=== PATIENT | female | born 1990 | race Caucasian/White ===

== ENCOUNTER → 2022-03-10 14:12 | Outpatient (BNVA) | payer OTHER, SELFPAY | PROVIDERS: Visit Provider Physician Assistant | DX: M47.894 Other spondylosis, thoracic region (principal); M41.84 Other forms of scoliosis, thoracic region; M54.2 Cervicalgia; M54.6 Pain in thoracic spine | CPT/HCPCS: 72040; 72072; 72110 ==

== ENCOUNTER 2022-03-14 11:17 | Emergency (ER) | payer OTHER, SELFPAY ==
[2022-03-14] VITALS (8 sets, daily range): BP systolic 96–165; BP diastolic 68–104; PULSE 71–101; RESP 16–29; TEMP 37.3; O2SAT 96–100
--- NOTE | 2022-03-14 11:42 | ED_ITS ---
HPI - General Adult General: Chief complaint: General Medical Stated complaint: back pain Time Seen by Provider: 03/14/22 11:27 History of Present Illness: Patient is a 31-year-old female without any significant past medical history presents emergency room with complaints of body aches, generalized paresthesia, fatigue since . Patient tells me the last week, her significant other was sick at home with weakness and cough. He also had symptoms last week. However since at 6:30 PM, patient suddenly developed diffuse body ache with paresthesia. Patient reported cough and generalized weakness on . Since then, patient has not improved. Patient also reports symptoms of dysuria. Patient denies any flank pain, nausea/vomiting, fever/chills. No other sick contacts at home. Patient denies any chest pain, shortness breath, abdominal pain, diarrhea/melena/hematochezia Onset:3 days ago Duration:3 days Location:home Severity:moderate Associated symptoms: Reports malaise; Deny chest pain, dyspnea, nausea, rash, palpitations or vomiting Review of Systems Const: Reports: body aches, malaise and other (+generalized paresthesia); Denies: fever(s) or chills Eyes: Denies: change in vision ENMT: Denies: mouth pain Card: Denies: chest pain or palpitations Resp: Denies: dyspnea or non-productive cough GI: Denies: abdominal pain, nausea, vomiting or diarrhea : Reports: dysuria (+dysuria x 2 days) Musc: Denies: extremity pain Skin/Breast: Denies: rash or new lesions Neuro: Denies: weakness in extremities Psych: Reports: other (Normal mood) Ezio/Lymph: Denies: easy bruising PFSH ED PFSH: Medical History No pertinent past medical history Social History Smoking and tobacco status: never smoked Alcohol intake: never Substance/Drug Use: never Physical Exam Const: COMMON NORMALS: alert HENMT: COMMON NORMALS: atraumatic HEAD & SCALP: atraumatic MOUTH: moist mucous membranes not abnormal Eye: COMMON NORMALS: EOMs intact bilaterally and conjunctivae normal CONJUNCTIVA: Yes conjunctivae normal Neck/C-Spine: COMMON NORMALS: full ROM and supple Resp: COMMON NORMALS: normal respiratory effort and clear to auscultation bilaterally AUSCULTATION: clear to auscultation bilaterally Cardio: COMMON NORMALS: regular rate RATE: regular rate GI: COMMON NORMALS: Soft to palpation and non-tender PALPATION: Yes Soft to palpation OTHER: No focal TTP. NO guarding rebound, guarding, rigidity. No CVA tenderness to percussion. Neg Boateng/Neg McBurney's point tenderness, no suprabupic tenderness to palpation. Extremity: COMMON NORMALS: full ROM Neuro: SENSORIUM/ORIENTATION: Yes alert MOTOR EXAM: No Abnormal motor strength present and Other motor observations present (no focal motor deficits) Psych: COMMON NORMALS: speech normal SPEECH: Yes normal speech MOOD & AFFECT: Yes euthymic mood Course Vital Signs: Vital signs: Vital Signs Temperature 99.2 F 03/14/22 11:31 Pulse Rate 72 03/14/22 17:00 Respiratory Rate 18 03/14/22 17:00 Blood Pressure 103/79 03/14/22 17:00 Pulse Oximetry 98 03/14/22 17:00 Oxygen Delivery Me thod 03/14/22 17:00 MDM - General Adult Medical Decision Making 31-year-old female presenting to the emergency room with body aches, generalized paresthesia for the last 3 days. On exam, patient is hemodynamically stable, neurologically intact. Patient complains of diffuse paresthesia throughout her body. Patient did have white count 2.5. Patient not neutropenic today. Patient is afebrile. Do not suspect any acute infection. Patient appears to be clear. COVID positive. He has no signs of respiratory distress, low oxygen sats or any signs of oral airway compromise. UA is negative for any signs of UTI. She has RBCs on urine. Patient is currently on her period. We will schedu le patient for MCA treatment. While in the emergency room, shortly after getting morphine, patient complains complains of diffuse abdominal pain. Decision was made to order a CT scan CT abdomen was negative for any acute findings. Patient received 1 mg Dilaudid reported improvement in pain. While observed in the emergency room, patient had intermittent nausea/vomiting. Patient's symptoms improved with multiple doses of zofran. Patient has been able to tolerate p.o. and liquid. Rx: Tylenol and gabapentin PRN parethesia and generalized weakness, menthol/aloe vera PRN pain/paresthesia, paxlovid for covid, zofran PRN nausea/vomiting Disposition: Discharge. Patient counseled regarding diagnostic impression, treatment plan. Patient given ED strict return precautions to return for continu ation, worsening, or development of new symptoms. Instructed to f/u w/ PCP regarding symptoms today. Patient verbalized understanding. Lab Data : 03/14/22 12:08 03/14/22 12:08 Radiology Impressions Chest X-Ray 03/14/22 11:49 IMPRESSION: No acute cardiopulmonary abnormality identified. Abdomen/Pelvis CT 03/14/22 14:26 IMPRESSION: Mild splenomegaly. No acute abdominopelvic findings otherwise. Somewhat limited exam due to lack of contrast. Laboratory Results WBC 2.5 10^3/uL (4.0-10.0) L 03/14/22 12:08 RBC 4.83 10^6/uL (4.1-5.3) 03/14/22 12:08 Hgb 13.8 g/dL (11.5-15.3) 03/14/22 12:08 Hct 42.4 % (37.0-47.0) 03/14/22 12:08 MCV 87.8 fl (81-99) 03/14/22 12:08 MCH 28.6 pg (28.0-34.0) 03/14/22 12:08 MCHC 32.5 g/dL (30.0-36.0) 03/14/22 12:08 RDW 12.5 % (12.1-15.1) 03/14/22 12:08 Plt Count 115 10^3/cmm (130-400) L 03/14/22 12:08 MPV 10.8 fL (7.4-10.4) H 03/14/22 12:08 Neut % (Auto) 65.0 % 03/14/22 12:08 Lymph % (Auto) 18.9 % 03/14/22 12:08 [place] % (Auto) 14.5 % 03/14/22 12:08 Eos % (Auto) 0.4 % 03/14/22 12:08 Baso % (Auto) 0.8 % 03/14/22 12:08 Neut # (Auto) 1.62 10^3/uL (1.8-7.7) L 03/14/22 12:08 Lymph # (Auto) 0.5 10^3/uL (0.8-4.8) L 03/14/22 12:08 [place] # (Auto) 0.4 10^3/uL (0.2-0.9) 03/14/22 12:08 Eos # (Auto) 0.0 10^3/uL (0.0-0.8) 03/14/22 12:08 Baso # (Auto) 0.0 10^3/uL (0.0-0.1) 03/14/22 12:08 Nucleated RBC % (auto) 0 % 03/14/22 12:08 Nucleated RBCs # 0.0 /100WBC 03/14/22 12:08 Sodium 140 mmol/L (136-145) 03/14/22 12:08 Potassium 3.7 mmol/L (3.5-5.1) 03/14/22 12:08 Chloride 107 mmol/L (98-107) 03/14/22 12:08 Carbon Dioxide 19 mmol/L (22-29) L 03/14/22 12:08 Anion Gap 17.7 (5-19) 03/14/22 12:08 BUN 8 mg/dL (6-20) 03/14/22 12:08 Creatinine 0.7 mg/dL (0.5-0.9) 03/14/22 12:08 GFR Calculation 97.6 mL/min (90-130) 03/14/22 12:08 Glucose 88 mg/dL (65-115) 03/14/22 12:08 Calculated Osmolality 288 mOsm/kg (285-295) 03/14/22 12:08 Calcium 9.0 mg/dL (8.5-10.5) 03/14/22 12:08 Total Bilirubin 0.3 mg/dL (0.15-1.2) 03/14/22 12:08 AST 29 U/L (0-32) 03/14/22 12:08 ALT 27 U/L (0-33) 03/14/22 12:08 Alkaline Phosphatase 56 IU/L (35-105) 03/14/22 12:08 Total Protein 6.4 g/dL (6.6-8.7) L 03/14/22 12:08 Albumin 4.0 g/dL (3.5-5.2) 03/14/22 12:08 Globulin 2.4 g/dL (1.3-4.6) 03/14/22 12:08 Lipase 42 U/L (13-60) 03/14/22 12:08 HCG, Qual Negative (Negative) 03/14/22 12:08 Urine Color Yellow (Yellow) 03/14/22 13:44 Urine Appearance Hazy (CLEAR) A 03/14/22 13:44 Urine pH 5 (5-7) 03/14/22 13:44 Ur Specific Eastern 1.020 (1.005-1.030) 03/14/22 13:44 Urine Protein Neg (Negative) 03/14/22 13:44 Urine Glucose (UA) Norm (Normal) 03/14/22 13:44 Urine Ketones 1+ (Negative) H 03/14/22 13:44 Urine Blood 3+ (Negative) H 03/14/22 13:44 Urine Nitrate Negative (Negative) 03/14/22 13:44 Urine Bilirubin Neg (Negative) 03/14/22 13:44 Urine Urobilinogen Norm mg/dL (Negative) 03/14/22 13:44 Ur Leukocyte Esterase Negative (Negative) 03/14/22 13:44 Urine RBC 50-80 /hpf (0-2) H 03/14/22 13:44 Urine WBC 0-4 /hpf (0-5) H 03/14/22 13:44 Ur Squamous Epith Cells 15-25 /hpf (0-5) H 03/14/22 13:44 Amorphous Sediment Not Reportable 03/14/22 13:44 Urine Bacteria Trace /hpf (NONE) 03/14/22 13:44 Urine Mucus 2+ /hpf 03/14/22 13:44 Coronavirus 229E (PCR) Not detected (NOT DETECT) 03/14/22 12:08 SARS-CoV-2 (PCR) Detected (NOT DETECT) A 03/14/22 12:08 Imaging Data Other Imaging: Radiologist's impression: [facility] [address] [place] [address] XRay Report Signed Patient: Rose Hansen Unit #: [id number] : 1990 Age/Sex: 31 / F ADM Date: 03/14/22 Loc: ER Room/Bed: Attending Dr: Ordering Provider/Ordering MD: Queenie Almanzar MD Date of Service: 03/14/22 Procedure(s): XR chest 1V portable [id number] Accession Number(s): [id number] Report Number: [id number] PROCEDURE INFORMATION: Exam: XR Chest Exam date and time: 03/14/2022 12:00 PM Age: 31 years old Clinical indication: Generalized weakness TECHNIQUE: Imaging protocol: Radiologic exam of the chest. Views: 1 view. COMPARISON: CR XR cervical spine fl/ex [id number] 03/10/2022 3:20 PM FINDINGS: Lungs: No pulmonary consolidation. Pleural spaces: No pleural effusion. No pneumothorax. Heart/Mediastinum: The cardiac silhouette is unremarkable. No gross evidence of pneumomediastinum. Bones/joints: No gross fracture. XR/XR chest 1V portable [id number] IMPRESSION: No acute cardiopulmonary abnormality identified. ? Dictated By: Julián Flynn Signed By: Julián Flynn Signed Date/Time: 03/14/22 1256 DD/ 1200 Close Abdomen/Pelvis CT (Signed) Denae Hoang - 03/14/22 Chest X-Ray (Signed) Julián Flynn - 03/14/22 Launch?Image [facility] [address] [place] [address] CT Scan Report Signed Patient: Rose Hansen Unit #: [id number] : 1990 Age/Sex: 31 / F ADM Date: 03/14/22 Loc: ER Room/Bed: Attending Dr: Ordering Provider/Ordering MD: Queenie Almanzar MD Date of Service: 03/14/22 Procedure(s): CT abdomen pelvis wo con [id number] Accession Number(s): [id number] Report Number: [id number] PROCEDURE INFORMATION: Exam: CT Abdomen And Pelvis Without Contrast Exam date and time: 03/14/2022 3:09 PM Age: 31 years old Clinical indication: Abdominal pain; Prior surgery; Surgery type: Gb; Additional info: Severe abd pain TECHNIQUE: Imaging protocol: Computed tomography of the abdomen and pelvis without contrast. Radiation optimization: All CT scans at this facility use at least one of these dose optimization techniques: automated exposure control; mA and/or kV adjustment per patient size (includes targeted exams where dose is matched to clinical indication); or iterative reconstruction. COMPARISON: CR XR lumbar spine min 4V [id number] 03/10/2022 3:20 PM RADIATION DOSE METRICS: Total DLP (mGy-cm): 410.01 FINDINGS: Liver: Normal. No mass. Gallbladder and bile ducts: Prior cholecystectomy. No abnormal bile duct dilatation. Pancreas: Normal. No ductal dilation. Spleen: Mild splenomegaly. Adrenal glands: Normal. No mass. Kidneys and ureters: No obstructing calculus. No hydronephrosis. Stomach and bowel: Moderate amount of fecal retention. No obvious bowel dilatation, pneumatosis or suspicious bowel wall thickening however assessment is limited due to lack of contrast. Appendix: No evidence of appendicitis. Intraperitoneal space: Unremarkable. No free air. No significant fluid collection. Vasculature: No abdominal aortic aneurysm.? Lymph nodes: No enlarged lymph nodes. Urinary bladder: Unremarkable as visualized. Reproductive: Unremarkable as visualized. Bones/joints: No acute fracture.? Soft tissues: No acute findings. CT/CT abdomen pelvis wo con [id number] IMPRESSION: Mild splenomegaly. No acute abdominopelvic findings otherwise. Somewhat limited exam due to lack of contrast. ? Dictated By: Denae Hoang MD Signed By: Denae Hoang MD Signed Date/Time: 03/14/22 1537 DD/ 1509 Discharge Plan Discharge Patient Disposition: Home Clinical Impression: Paresthesia, Body aches, COVID Condition: Stable Prescriptions: New acetaminophen 500 mg tablet 500 mg PO Q6H PRN (Reason: pain) 5 Days Qty: 20 0RF gabapentin 300 mg capsule 300 mg PO BID 5 Days Qty: 10 0RF aloe vera Gel 1 applic topical DAILY PRN (Reason: pain) 10 Days Qty: 170 0RF Biofreeze (menthol) 5 % gel 1 ea topical BID PRN (Reason: pain) 10 Days Qty: 1 0RF Paxlovid (EUA) 150 mg x 2- 100 mg tablet See Rx Instructions .ROUTE .COMPLEX Qty: 30 0RF Rx Instructions: take TWO 150 mg tablets of nirmatrelvir with ONE 100 mg tablet of ritonavir twice daily for 5 days Discharge Orders: Discharge ED (Routine); Ordered 03/14/22 Ordered By: Queenie Almanzar Discharge Diet: Advance as tolerated Discharge Activity: Increase activity as tolerated Patient Instructions: Paresthesia (ED) Activity Restrictions/Additional Instructions: Come back if you have any new or concerning issues. Come back to the emergency room if your symptoms worsen, have any shortness of breath, fever/chills, dehydration, inability tolerate food or drinks, any difficulty breathing, or any new or concerning complaints. Coding Level of Care Code ED Director Information Security for Chg Fwd Exam Comprehensive
--- NOTE | 2022-03-14 11:49 | XRR_ITS ---
PROCEDURE INFORMATION: Exam: XR Chest Exam date and time: 03/14/2022 12:00 PM Age: 31 years old Clinical indication: Generalized weakness TECHNIQUE: Imaging protocol: Radiologic exam of the chest. Views: 1 view. COMPARISON: CR XR cervical spine fl/ex [id number] 03/10/2022 3:20 PM FINDINGS: Lungs: No pulmonary consolidation. Pleural spaces: No pleural effusion. No pneumothorax. Heart/Mediastinum: The cardiac silhouette is unremarkable. No gross evidence of pneumomediastinum. Bones/joints: No gross fracture. XR/XR chest 1V portable [id number] IMPRESSION: No acute cardiopulmonary abnormality identified.
[2022-03-14] MEDS: acetaminophen 500 mg Tablet PO (12:06)
[2022-03-14] MEDS: sodium chloride 0.9% 1,000 ML 999 ML IV ×2 (12:07→15:47)
--- NOTE | 2022-03-14 12:18 | ECG_ITS ---
[facility] Test Date: 2022-03-14 Pat Name: Rose Hansen Department: Room: Gender: Female Lead Systems Developer: : 1990 Requested By: Queenie Almanzar Order Number: [id number] Frances MD: Dewayne Peng M.D. Measurements Intervals [place] Rate: 65 P: 45 CT: 142 QRS: 68 QRSD: 76 T: 58 QT: 371 QTc: 388 Interpretive Statements SINUS RHYTHM WITH SINUS ARRHYTHMIA No previous ECG available for comparison Electronically Signed On 03-14-2022 20:31:45 CDT by Dewayne Peng M.D. [email or web address]
[2022-03-14 12:20] LABS: Basophils % 0.8 %; Eosinophils % 0.4 %; Hematocrit 42.4 % (37.0-47.0); Hemoglobin 13.8 g/dL (11.5-15.3); Lymphocytes # 0.5 10^3/uL (0.8-4.8); Lymphocytes % 18.9 %; Mean Corpuscular HGB Conc 32.5 g/dL (30.0-36.0); Mean Corpuscular Hemoglobin 28.6 pg (28.0-34.0); Mean Corpuscular Volume 87.8 fl (81-99); Mean Platelet Volume 10.8 fL (7.4-10.4); Monocytes # 0.4 10^3/uL (0.2-0.9); Monocytes % 14.5 %; Neutrophils # 1.62 10^3/uL (1.8-7.7); Nucleated Red Blood Cells % 0 %; Platelet Count 115 10^3/cmm (130-400); Red Blood Count 4.83 10^6/uL (4.1-5.3); Red Cell Distribution Width 12.5 % (12.1-15.1); White Blood Count 2.5 10^3/uL (4.0-10.0)
[2022-03-14 12:32] LABS: HCG, Serum Qual Negative (Negative)
[2022-03-14 12:39] LABS: Alanine Aminotransferase 27 U/L (0-33); Alkaline Phosphatase 56 IU/L (35-105); Anion Gap 17.7 (5-19); Aspartate Amino Transferase 29 U/L (0-32); Blood Urea Nitrogen 8 mg/dL (6-20); Carbon Dioxide 19 mmol/L (22-29); Chloride 107 mmol/L (98-107); Globulin 2.4 g/dL (1.3-4.6); Glomerular Filtration Rate 97.6 mL/min (90-130); Glucose 88 mg/dL (65-115); Lipase 42 U/L (13-60); Osmolality Calculated 288 mOsm/kg (285-295); Potassium 3.7 mmol/L (3.5-5.1); Sodium 140 mmol/L (136-145); Total Bilirubin 0.3 mg/dL (0.15-1.2); Total Protein 6.4 g/dL (6.6-8.7)
[2022-03-14] MEDS: morphine 4 mg/mL SDV 1 mL IVP (13:53)
[2022-03-14 13:59] LABS: Add Urine Microscopic? YES; Bilirubin Urine Neg (Negative); Blood Urine 3+ (Negative); Glucose Urine UA Norm (Normal); Ketones Urine 1+ (Negative); Leukocyte Esterase Urine Negative (Negative); Nitrate Urine Negative (Negative); Protein Urine Neg (Negative); Urine Appearance Hazy (CLEAR); Urine Color Yellow (Yellow); Urobilinogen Urine Norm (Negative); pH Urine 5 (5-7)
[2022-03-14 14:01] LABS: RBC Urine 50-80 /hpf (0-2); Squamous Epithelial Cell Urine 15-25 /hpf (0-5); WBC Urine 0-4 /hpf (0-5)
[2022-03-14 14:02] LABS: Add Urine Culture? No; Bacteria Urine TRACE /hpf; Mucus Urine 2+ /hpf
[2022-03-14 14:03] LABS: Adenovirus Not Detected (NOT DETECT); Chlamydia Pneumoniae Not Detected (NOT DETECT); Coronavirus 229E,HKU1,NL63,OC4 Not Detected (NOT DETECT); Human Metapneumovirus Not Detected (NOT DETECT); Human Rhinovirus/Enterovirus Not Detected (NOT DETECT); Influenza A Not Detected (NOT DETECT); Influenza A H1 Not Detected (NOT DETECT); Influenza A H1-2009 Not Detected (NOT DETECT); Influenza A H3 Not Detected (NOT DETECT); Influenza B Not Detected (NOT DETECT); Mycoplasma Pneumoniae Not Detected (NOT DETECT); Parainfluenza Virus Type 1 Not Detected (NOT DETECT); Parainfluenza Virus Type 2 Not Detected (NOT DETECT); Parainfluenza Virus Type 3 Not Detected (NOT DETECT); Parainfluenza Virus Type 4 Not Detected (NOT DETECT); Respiratory Syncytial Virus A Not Detected (NOT DETECT); Respiratory Syncytial Virus B Not Detected (NOT DETECT); SARS-COV-2 Detected (NOT DETECT)
[2022-03-14] MEDS: ondansetron 2 mg/ML SDV 2 mL 4 MG IVP ×2 (14:03→16:24)
[2022-03-14] MEDS: gabapentin 300 mg Capsule PO (14:03)
--- NOTE | 2022-03-14 14:10 | PC.NURSE ---
Patient c/o of severe abdominal pain after this RN admin morphine. ERP at bedside to discharge patient. Patient crying and rocking back in forth in bed.
--- NOTE | 2022-03-14 14:26 | CTR_ITS ---
PROCEDURE INFORMATION: Exam: CT Abdomen And Pelvis Without Contrast Exam date and time: 03/14/2022 3:09 PM Age: 31 years old Clinical indication: Abdominal pain; Prior surgery; Surgery type: Gb; Additional info: Severe abd pain TECHNIQUE: Imaging protocol: Computed tomography of the abdomen and pelvis without contrast. Radiation optimization: All CT scans at this facility use at least one of these dose optimization techniques: automated exposure control; mA and/or kV adjustment per patient size (includes targeted exams where dose is matched to clinical indication); or iterative reconstruction. COMPARISON: CR XR lumbar spine min 4V [id number] 03/10/2022 3:20 PM RADIATION DOSE METRICS: Total DLP (mGy-cm): 410.01 FINDINGS: Liver: Normal. No mass. Gallbladder and bile ducts: Prior cholecystectomy. No abnormal bile duct dilatation. Pancreas: Normal. No ductal dilation. Spleen: Mild splenomegaly. Adrenal glands: Normal. No mass. Kidneys and ureters: No obstructing calculus. No hydronephrosis. Stomach and bowel: Moderate amount of fecal retention. No obvious bowel dilatation, pneumatosis or suspicious bowel wall thickening however assessment is limited due to lack of contrast. Appendix: No evidence of appendicitis. Intraperitoneal space: Unremarkable. No free air. No significant fluid collection. Vasculature: No abdominal aortic aneurysm. Lymph nodes: No enlarged lymph nodes. Urinary bladder: Unremarkable as visualized. Reproductive: Unremarkable as visualized. Bones/joints: No acute fracture. Soft tissues: No acute findings. CT/CT abdomen pelvis wo con [id number] IMPRESSION: Mild splenomegaly. No acute abdominopelvic findings otherwise. Somewhat limited exam due to lack of contrast.
[2022-03-14] MEDS: lidocaine 2% viscous 15 ML, aluminum-mag hydrox-simethicon 30 ML, sucralfate oral liq 1 GM PO (14:29)
--- NOTE | 2022-03-14 14:30 | PC.NURSE ---
GI cocktail administered. Patient crying uncontrollably. ERP notified. Verbal reassurance given. VSS.
--- NOTE | 2022-03-14 14:35 | PC.NURSE ---
ERP at bedside to update patient on plan of care and ordering further imaging. This RN at bedside attempting to comfort patient and give verbal reassurance. Patient crying, appears restless. and daughter at bedside.
[2022-03-14] MEDS: HYDROmorphone 1 mg/mL INJ 1 mL IVP (14:56)
--- NOTE | 2022-03-14 15:30 | PC.NURSE ---
Patient resting quietly.
== END 2022-03-14 17:13 | disposition home or self-care (01) ==
PROVIDERS: Emergency Provider Emergency Medicine
DX: U07.1 COVID-19 (principal); R20.2 Paresthesia of skin
CPT/HCPCS: 71045; 74176; 80053; 81001; 83690; 84703; 85025; 87635; 93005; 96361; 96374; 96375; 96376; 99285; J1170; J2270; J2405; J7030

== ENCOUNTER 2022-06-18 06:00 | Outpatient (RCR) | payer OTHER, SELFPAY | END 2022-07-01 23:59 | disposition home or self-care (01) | LOC: GPT 06:00 | PROVIDERS: Visit Provider Orthopaedic Surgery | DX: M54.2 Cervicalgia (principal) | CPT/HCPCS: 97112; 97140; 97163 ==

== ENCOUNTER 2022-07-02 06:00 | Outpatient (RCR) | payer OTHER, SELFPAY | END 2022-08-01 23:59 | disposition home or self-care (01) | LOC: GPT 06:00 | PROVIDERS: Visit Provider Orthopaedic Surgery | DX: M54.2 Cervicalgia (principal) | CPT/HCPCS: 97110; 97112; 97140 ==

== ENCOUNTER 2022-08-02 06:00 | Outpatient (RCR) | payer OTHER, SELFPAY | END 2022-09-01 23:59 | disposition home or self-care (01) | LOC: GPT 06:00 | PROVIDERS: Visit Provider Orthopaedic Surgery | DX: M54.2 Cervicalgia (principal) | CPT/HCPCS: 20561; 97110; 97112; 97140; 97530 ==

== ENCOUNTER 2022-09-02 06:00 | Outpatient (RCR) | payer OTHER, SELFPAY | END 2022-09-29 23:59 | disposition home or self-care (01) | LOC: GPT 06:00 | PROVIDERS: Visit Provider Orthopaedic Surgery | DX: M54.2 Cervicalgia (principal) | CPT/HCPCS: 20561; 97110; 97112; 97140 ==

== ENCOUNTER 2022-09-30 06:00 | Outpatient (RCR) | payer OTHER, SELFPAY | END 2022-10-30 23:59 | disposition home or self-care (01) | LOC: GPT 06:00 | PROVIDERS: Visit Provider Orthopaedic Surgery | DX: M54.2 Cervicalgia (principal) | CPT/HCPCS: 97110; 97112; 97140; 97535 ==

== ENCOUNTER 2022-10-31 06:00 | Outpatient (RCR) | payer OTHER, SELFPAY | END 2022-11-29 23:59 | disposition home or self-care (01) | LOC: GPT 06:00 | PROVIDERS: Visit Provider Orthopaedic Surgery | DX: M54.2 Cervicalgia (principal) | CPT/HCPCS: 97110; 97112; 97140; 97535 ==

== ENCOUNTER 2022-11-24 09:15 | Outpatient (CLI) | payer OTHER, SELFPAY ==
--- NOTE | 2022-11-24 09:30 | MR_ITS ---
WS: [id number] MRI LUMBAR SPINE NONCONTRAST HISTORY: low back pain with radiculopathy COMPARISON: 06/21/2022 TECHNIQUE: Sagittal and axial multisequence imaging is submitted. There are a few very small disc bulges or protrusions in the thoracic spine. No cord compression. Normal lumbar alignment with no compression fractures or marrow edema. Disc spaces and vertebral body heights are well-preserved. Conus terminates normally at L1. L1-L2: Normal. L2-L3: Normal. L3-L4: Mild ligamentum flavum hypertrophy. No stenosis. L4-L5: Mild ligamentum flavum and facet arthritis with mild encroachment towards the thecal sac. Very minimal encroachment upon the subarticular recesses. No compression of the nerve roots. L5-S1: Small central disc protrusion and osteophytic ridging. Very minimal encroachment upon the S1 n erve roots. No high-grade stenosis. Mild foraminal stenosis. Paraspinal soft tissues are normal. MR/MR lumbar spine wo con* [id number] IMPRESSION: 1. No high-grade central or foraminal stenosis. 2. Small central disc protrusion at L5-S1. Very minimal foraminal stenosis at L5-S1 and encroachment upon the S1 nerve roots. 3. Very mild encroachment upon the subarticular recesses at L4-5. No nerve karlie t compression. 4. Mild facet joint arthritis from L3-4 to L5-S1.
--- NOTE | 2022-11-24 11:00 | CT_ITS ---
WS: [id number] CT PELVIS WITHOUT CONTRAST. HISTORY: low back pain with radiculopathy, SI joint pain TECHNIQUE: Contiguous imaging is performed of the pelvis without contrast. Coronal and sagittal refor mats are reviewed. All CT scans at [facility] use at least one of these dose optimization tracey hniques: automated exposure control; mA and/or kV adjustment per patient size (includes targeted exam s where dose is matched to clinical indication); or iterative reconstruction. DLP: 222.87 mGy.cm COMPARISON: 03/14/2022 No destructive bone lesions. Partial sacralization L5 on the RIGHT. Bony sclerosis and pseudoarticula tion on the RIGHT. Similar to the prior studies. No destructive bone lesions. The SI joints otherwise are normal with no erosions. Mild constipation. Anteverted uterus. No free fluid or mass identified. CT/CT pelvis wo con [id number] IMPRESSION: 1. Right-sided lumbosacral transitional vertebrae. Bony sclerosis and hypertro phy on the RIGHT between the L5 and S1 vertebral bodies. This could be a source of pain. 2. Otherwise negative.
== END 2022-11-24 09:16 | disposition home or self-care (01) ==
LOC: RAD 09:18
PROVIDERS: Visit Provider Orthopaedic Surgery
DX: M51.37 Other intervertebral disc degeneration, lumbosacral region (principal); Q79.60 Ehlers-Danlos syndrome, unspecified; M54.50 Low back pain, unspecified; M54.10 Radiculopathy, site unspecified
CPT/HCPCS: 72148; 72192

== ENCOUNTER 2022-11-30 06:00 | Outpatient (RCR) | payer OTHER, SELFPAY | END 2022-12-30 23:59 | disposition home or self-care (01) | LOC: GPT 06:00 | PROVIDERS: Visit Provider Orthopaedic Surgery | DX: M54.2 Cervicalgia (principal) | CPT/HCPCS: 97110; 97112; 97140; 97535 ==

== ENCOUNTER 2022-12-31 06:00 | Outpatient (RCR) | payer OTHER, SELFPAY | END 2023-01-29 23:59 | disposition home or self-care (01) | LOC: GPT 06:00 | PROVIDERS: Visit Provider Orthopaedic Surgery | DX: M54.2 Cervicalgia (principal) | CPT/HCPCS: 20561; 97110; 97112; 97140 ==

== ENCOUNTER 2023-01-30 06:00 | Outpatient (RCR) | payer OTHER, SELFPAY | END 2023-03-01 23:59 | disposition home or self-care (01) | LOC: GPT 06:00 | PROVIDERS: Visit Provider Orthopaedic Surgery | DX: M54.2 Cervicalgia (principal) | CPT/HCPCS: 97110; 97112; 97140 ==